=== PATIENT | male | born 1995 | race Two or more races ===

== ENCOUNTER 2021-06-17 23:21 | Emergency (ER) | payer SELFPAY ==
[~2021-06-17] VITALS: Ht 172.7 cm; Wt 81.6 kg
[2021-06-18 00:52] LABS: Urine Bacteria NONE SEEN /hpf (None Seen); Urine Blood Negative /uL (Negative); Urine Hyaline Cast FEW /lpf (0 - 2); Urine Specific Gravity 1.031 (1.001-1.035); Urine WBC 1 /hpf (0 - 3)
[2021-06-18 01:43] LABS: Basophils # (auto) 0 10 ^3/uL (0-0.2); Basophils % (auto) 0.1 % (0.0-2.0); Eosinophils # (auto) 0 10 ^3/uL (0-0.8); Hemoglobin 16.8 g/dL (13.5-17.5); Lymphocytes # (auto) 0.5 10 ^3/uL (0.4-5.4); Lymphocytes % (auto) 2.5 % (10.0-50.0); Mean Corpuscular Hemoglobin 30.1 pg (28.0-32.0); Mean Corpuscular Hgb Conc. 33.6 g/dL (32.0-36.0); Mean Corpuscular Volume 89.7 fL (80.0-100.0); Monocytes # (auto) 0.4 10 ^3/uL (0-1.3); Neutrophils # (auto) 18.8 10 ^3/uL (1.6-8.6); Neutrophils % (auto) 95.4 % (37.0-80.0); Red Blood Cells 5.58 10^6/uL (4.5-5.90); Red Cell Distribution Width 13.5 % (11.8-14.3); White Blood Cell 19.7 10^3/uL (4.4-10.8)
[2021-06-18 02:04] LABS: Anion Gap 18 (5-15); BUN/Creatinine Ratio 14.7; Blood Urea Nitrogen 23 mg/dL (7-18); Calcium 9.7 mg/dL (8.5-10.1); Carbon Dioxide 14 mmol/L (21-32); Chloride 106 mmol/L (98-107); GFR African American 68 mL/min; GFR Non-African American 57 mL/min; Glucose 112 mg/dL (74-106); Potassium 4.5 mmol/L (3.5-5.1); Sodium 138 mmol/L (136-145)
[2021-06-18 02:07] LABS: Alanine Aminotransferase 43 U/L (16-61); Alkaline Phosphatase 63 U/L (45-117); Aspartate Aminotransferase 26 U/L (15-37); Bilirubin, Total 1.3 mg/dL (0.2-1.0); Total Protein 10.3 g/dL (6.4-8.2)
[2021-06-18] MEDS ORDERED: SODIUM CHLORIDE 0.9% 1,000 ML IV ONE ×2 (02:45)
[2021-06-18] MEDS ORDERED: ONDANSETRON HCL 4 MG/2 ML VIAL IV ONE ×2 (02:45→04:00)
[2021-06-18] MEDS ORDERED: IOHEXOL 300 MG/ML 100ML BOTTLE IJ ONE (03:57)
[2021-06-18] MEDS ORDERED: HYDROmorphone HCL 2 MG/ML VL IV ONE (04:00)
[2021-06-18] MEDS ORDERED: ONDA-144 PO (06:26)
[2021-06-18 06:27] VITALS: BP 110/59
== END 2021-06-18 06:32 | disposition home or self-care (01) ==
LOC: ER 23:27
DX: A05.9 Bacterial foodborne intoxication, unspecified (principal)
CPT/HCPCS: 36415; 74177; 80053; 81001; 83605; 83690; 85025; 96361; 96374; 96375; 96376; 99285; J1170; J2405; Q9967

== ENCOUNTER 2021-09-02 15:04 | Emergency (ER) | payer SELFPAY ==
[~2021-09-02] VITALS: Ht 172.7 cm; Wt 77.1 kg
[~2021-09-02 15:04] MED LIST: ONDA-144 PO
[2021-09-02 16:17] LABS: Basophils # (auto) 0.1 10 ^3/uL (0-0.2); Eosinophils # (auto) 0 10 ^3/uL (0-0.8); Monocytes # (auto) 0.8 10 ^3/uL (0-1.3); Red Cell Distribution Width 13.6 % (11.8-14.3)
[2021-09-02 16:19] LABS: Basophils % (auto) 1.3 % (0.0-2.0); Hematocrit 50.9 % (41.0-53.0); Hemoglobin 17.8 g/dL (13.5-17.5); Lymphocytes # (auto) 1.5 10 ^3/uL (0.4-5.4); Lymphocytes % (auto) 15.8 % (10.0-50.0); Mean Corpuscular Hemoglobin 30.3 pg (28.0-32.0); Mean Corpuscular Volume 86.7 fL (80.0-100.0); Monocytes % (auto) 8.2 % (0.0-12.0); Neutrophils # (auto) 7.1 10 ^3/uL (1.6-8.6); Neutrophils % (auto) 74.7 % (37.0-80.0); Red Blood Cells 5.86 10^6/uL (4.5-5.90); White Blood Cell 9.6 10^3/uL (4.4-10.8)
[2021-09-02 16:32] LABS: Albumin 5.2 g/dL (3.4-5.0); Anion Gap 15 (5-15); Blood Urea Nitrogen 34 mg/dL (7-18); Calcium 11.2 mg/dL (8.5-10.1); Carbon Dioxide 26 mmol/L (21-32); Chloride 90 mmol/L (98-107); Glucose 122 mg/dL (74-106); Potassium 3.6 mmol/L (3.5-5.1); Sodium 131 mmol/L (136-145)
[2021-09-02 16:35] LABS: BUN/Creatinine Ratio 24.3; GFR African American 78 mL/min; GFR Non-African American 64 mL/min; Lipase 100 U/L (73-393); Magnesium 2.9 mg/dL (1.6-2.6)
[2021-09-02 16:44] LABS: Alanine Aminotransferase 62 U/L (16-61); Alkaline Phosphatase 62 U/L (45-117); Aspartate Aminotransferase 26 U/L (15-37); Bilirubin, Total 2.4 mg/dL (0.2-1.0)
[2021-09-02] MEDS ORDERED: DONNATAL 5ml ORAL Elix (BELLADONNA ALK-PHENOBARB) PO ONE (17:00)
[2021-09-02] MEDS ORDERED: ALUM & MAG HYDROX-SIMETH LIQ(MAALOX) 30 ML PO ONE (17:00)
[2021-09-02] MEDS ORDERED: PANTOPRAZOLE 40 MG TAB PO ONE (17:00)
[2021-09-02] MEDS ORDERED: METOCLOPRAMIDE HCL 5MG/ml INJ 2ml VIAL IV ONE (17:00)
[2021-09-02] MEDS ORDERED: LIDOCAINE VISCOUS 2% 15ML UD PO ONE (17:00)
[2021-09-02] MEDS ORDERED: SODIUM CHLORIDE 0.9% 1,000 ML IVB ONE (17:00)
[2021-09-02 17:05] LABS: Blood Alcohol < 3.0 mg/dL (0-5)
[2021-09-02] MEDS ORDERED: FURO1TAB33 PO (18:22)
[2021-09-02] MEDS ORDERED: METO-281 PO (18:22)
[2021-09-02] MEDS ORDERED: OMEP-263 PO (18:22)
[2021-09-02] MEDS ORDERED: THIA100T10 GT (18:22)
[2021-09-02] MEDS ORDERED: FOLITAB22 PO (18:22)
[2021-09-02 20:25] VITALS: BP 131/78
== END 2021-09-02 20:37 | disposition home or self-care (01) ==
LOC: ER 15:04
DX: K29.20 Alcoholic gastritis without bleeding (principal); E83.52 Hypercalcemia; E80.6 Other disorders of bilirubin metabolism; Z79.899 Other long term (current) drug therapy
CPT/HCPCS: 36415; 80053; 80320; 83690; 83735; 85025; 96361; 96374; 99284; J2765; J7030